=== PATIENT | female | born 1995 | race African-American/Black ===

== ENCOUNTER 2021-06-06 03:06 | Emergency (ER) | payer MEDICAID, SELFPAY | END 2021-06-06 03:55 | disposition home or self-care (01) | LOC: CSHERS 03:06 | DX: S63.501A Unspecified sprain of right wrist, initial encounter (principal); S50.01XA Contusion of right elbow, initial encounter; S80.01XA Contusion of right knee, initial encounter; Y09 Assault by unspecified means ==